=== PATIENT | male | born 1955 | race Caucasian/White ===

== ENCOUNTER 2018-05-01 13:00 | Inpatient (IN) | payer MEDICAID ==
[~2018-05-01] VITALS: Ht 170.2 cm; Wt 74.9 kg
[2018-05-01 14:05] LABS: PLATELET COUNT 315 x10^3mcL (130-400); RED CELL DISTRIBUTION WIDTH 14.3 % (11.5-14.5)
[2018-05-01 14:17] LABS: CALCIUM 8.5 mg/dL (8.5-10.1); CHLORIDE SERUM 99 mmol/L (98-107); CREATININE SERUM 1.6 mg/dL (0.7-1.3); GFR1 46 mL/min; GLUCOSE SERUM 132 mg/dL (74-106); SODIUM SERUM 139 mmol/L (136-145)
[2018-05-01 14:19] LABS: ALKALINE PHOSPHATASE 72 U/L (46-116); ALT/SGPT 35 U/L (16-63); AST/SGOT 67 U/L (15-37); BILIRUBIN TOTAL 4.98 mg/dL (0.20-1.00)
[2018-05-01 14:20] LABS: ALBUMIN 2.4 g/dL (3.4-5.0); CHOLESTEROL 102 mg/dL (<200); HDL CHOLESTEROL 12 mg/dL (40-60); TOTAL PROTEIN, SERUM 8.5 g/dL (6.4-8.2)
[2018-05-01 14:31] LABS: ATYPICAL LYMPH 1 %; BAND NEUTROPHIL 3 % (0-10); BASOPHIL 0 % (0-2); MONOCYTE 7 % (0-7); SEGMENTED NEUTROPHILS 87 % (37-75)
[2018-05-01 14:32] LABS: PLATELET MORPHOLOGY PLATELETS NORMAL; rbc morphology (normal/abnorm) ABNORMAL (NORMAL)
[2018-05-01 14:57] VITALS: BP 105/65
[2018-05-01 15:57] VITALS: BP 126/76
[2018-05-01 15:59] VITALS: Ht 170.2 cm; Wt 74.9 kg
[2018-05-01 16:26] LABS: BILIRUBIN DIRECT 3.91 mg/dL (0.0-0.2); BILIRUBIN TOTAL 5.01 mg/dL (0.20-1.00)
[2018-05-01 16:29] LABS: ALBUMIN 2.5 g/dL (3.4-5.0); TOTAL PROTEIN, SERUM 8.5 g/dL (6.4-8.2)
[2018-05-01 20:29] VITALS: BP 107/63
[2018-05-02 05:36] VITALS: BP 120/72
[2018-05-02 08:03] LABS: UA SPECIFIC GRAVITY 1.025 (1.005-1.035); microscopic required? YES; urine erythrocyte NEGATIVE (NEGATIVE)
[2018-05-02 09:42] VITALS: BP 117/66
[2018-05-02 13:10] VITALS: BP 130/70
[2018-05-02 17:32] VITALS: BP 130/75
[2018-05-02 20:30] VITALS: BP 124/76
[2018-05-03 05:01] VITALS: BP 116/67
[2018-05-03 07:10] LABS: CALCIUM 8.5 mg/dL (8.5-10.1); CARBON DIOXIDE 26.8 mmol/L (21-32); CHLORIDE SERUM 108 mmol/L (98-107); CREATININE SERUM 0.9 mg/dL (0.7-1.3); GFR1 > 60 mL/min; GLUCOSE SERUM 134 mg/dL (74-106); MAGNESIUM 2.3 mg/dL (1.8-2.4); PHOSPHOROUS 3.1 mg/dL (2.5-4.9); POTASSIUM SERUM 3.8 mmol/L (3.5-5.1); SODIUM SERUM 142 mmol/L (136-145)
[2018-05-03 07:26] LABS: PLATELET COUNT 336 x10^3mcL (130-400)
[2018-05-03 08:03] LABS: RED CELL DISTRIBUTION WIDTH 14.6 % (11.5-14.5)
[2018-05-03 09:04] VITALS: BP 112/67
[2018-05-03 12:27] VITALS: BP 119/69
[2018-05-03 12:45] LABS: MONOCYTE 1 % (0-7); SEGMENTED NEUTROPHILS 92 % (37-75)
[2018-05-03 12:46] LABS: ATYPICAL LYMPH 3 %; BAND NEUTROPHIL 1 % (0-10); BASOPHIL 0 % (0-2); PLATELET MORPHOLOGY PLATELETS INCREASED
[2018-05-03 14:33] LABS: rbc morphology (normal/abnorm) NORMAL (NORMAL)
[2018-05-03 17:00] VITALS: BP 116/71
[2018-05-03 20:35] VITALS: BP 123/71
[2018-05-04 06:09] VITALS: BP 134/76
[2018-05-04 06:40] LABS: CALCIUM 8.5 mg/dL (8.5-10.1); CARBON DIOXIDE 30.7 mmol/L (21-32); CHLORIDE SERUM 110 mmol/L (98-107); CREATININE SERUM 0.9 mg/dL (0.7-1.3); GFR1 > 60 mL/min; GLUCOSE SERUM 135 mg/dL (74-106); SODIUM SERUM 143 mmol/L (136-145)
[2018-05-04 07:43] LABS: BASOPHIL % 0.2 % (0-2); PLATELET COUNT 326 x10^3mcL (130-400); RED CELL DISTRIBUTION WIDTH 14.8 % (11.5-14.5)
[2018-05-04 08:28] VITALS: BP 138/81
[2018-05-04 10:29] VITALS: BP 138/81
[2018-05-04 12:31] VITALS: BP 118/70
[2018-05-04 16:26] VITALS: BP 129/63
[2018-05-04 20:48] VITALS: BP 139/80
[2018-05-05 05:47] VITALS: BP 144/85
[2018-05-05 06:27] LABS: CALCIUM 8.5 mg/dL (8.5-10.1); CHLORIDE SERUM 108 mmol/L (98-107); CREATININE SERUM 0.8 mg/dL (0.7-1.3); GFR1 > 60 mL/min; GLUCOSE SERUM 142 mg/dL (74-106); POTASSIUM SERUM 4.9 mmol/L (3.5-5.1); SODIUM SERUM 141 mmol/L (136-145)
[2018-05-05 06:29] LABS: BASOPHIL % 0.1 % (0-2)
[2018-05-05 08:20] VITALS: BP 156/92
[2018-05-05 08:50] LABS: RED CELL DISTRIBUTION WIDTH 14.6 % (11.5-14.5)
[2018-05-05 08:51] LABS: PLATELET COUNT 348 x10^3mcL (130-400)
[2018-05-05 16:20] VITALS: BP 105/75
[2018-05-05 21:00] VITALS: BP 149/86
[2018-05-06 05:17] VITALS: BP 130/78
[2018-05-06 15:51] VITALS: BP 119/61
[2018-05-06 21:02] VITALS: BP 125/68
[2018-05-07 05:28] VITALS: BP 119/73
[2018-05-07 06:18] LABS: BASOPHIL % 0.1 % (0-2); PLATELET COUNT 352 x10^3mcL (130-400); RED CELL DISTRIBUTION WIDTH 14.5 % (11.5-14.5)
[2018-05-07 06:37] LABS: CALCIUM 8.4 mg/dL (8.5-10.1); CARBON DIOXIDE 33.2 mmol/L (21-32); CHLORIDE SERUM 107 mmol/L (98-107); CREATININE SERUM 0.9 mg/dL (0.7-1.3); GFR1 > 60 mL/min; GLUCOSE SERUM 146 mg/dL (74-106); SODIUM SERUM 141 mmol/L (136-145)
[2018-05-07 08:54] VITALS: BP 137/69
[2018-05-07] MEDS ORDERED: ZIT250 PO (12:05)
[2018-05-07] MEDS ORDERED: LEVAQUIN750 MG PO (12:06)
[2018-05-07 17:36] VITALS: BP 126/71
[2018-05-07 21:04] VITALS: BP 128/71
[2018-05-08 05:04] VITALS: BP 127/68
[2018-05-08 10:03] VITALS: BP 110/64
[2018-05-08 13:50] VITALS: BP 110/64
[2018-05-08 16:45] VITALS: BP 138/79
[2018-05-08 20:23] VITALS: BP 124/69
[2018-05-09 04:55] VITALS: BP 135/63
[2018-05-09 06:42] LABS: PLATELET COUNT 332 x10^3mcL (130-400); RED CELL DISTRIBUTION WIDTH 13.9 % (11.5-14.5)
[2018-05-09 06:44] LABS: CALCIUM 8.2 mg/dL (8.5-10.1); CARBON DIOXIDE 31.3 mmol/L (21-32); CHLORIDE SERUM 108 mmol/L (98-107); CREATININE SERUM 0.8 mg/dL (0.7-1.3); GFR1 > 60 mL/min; GLUCOSE SERUM 140 mg/dL (74-106); POTASSIUM SERUM 4.7 mmol/L (3.5-5.1); SODIUM SERUM 141 mmol/L (136-145)
[2018-05-09 09:51] VITALS: BP 112/64
[2018-05-09 14:40] LABS: ATYPICAL LYMPH 15 %; BAND NEUTROPHIL 0 % (0-10); BASOPHIL 0 % (0-2); MONOCYTE 20 % (0-7); SEGMENTED NEUTROPHILS 38 % (37-75); rbc morphology (normal/abnorm) ABNORMAL (NORMAL)
[2018-05-09 14:41] LABS: PLATELET MORPHOLOGY PLATELETS INCREASED
[2018-05-09 16:59] VITALS: BP 130/70
[2018-05-09 19:48] VITALS: BP 130/70
[2018-05-09 19:55] VITALS: BP 143/75
== END 2018-05-09 20:22 | disposition home or self-care (01) | DRG 139 ==
LOC: ED 13:00 → MU 14:33 → DU 14:33 → MU 05-03 16:18
PROVIDERS: Emergency Medicine; General Practice; ADMIT Internal Medicine
DX: J18.9 Pneumonia, unspecified organism (principal); J96.21 Acute and chronic respiratory failure with hypoxia; E87.3 Alkalosis; E44.0 Moderate protein-calorie malnutrition; R17 Unspecified jaundice; J44.1 Chronic obstructive pulmonary disease with (acute) exacerbation; E87.6 Hypokalemia; R09.02 Hypoxemia; I10 Essential (primary) hypertension; F17.210 Nicotine dependence, cigarettes, uncomplicated
CPT/HCPCS: 36600; 87804; 94150; J0456; J0696; J1650; J2920; J2930; J7030; J7050; J7613; J7620; J7626; Q0092